=== PATIENT | female | born 1960 | race Caucasian/White ===

== ENCOUNTER → 2020-08-31 13:54 | Outpatient (BNVA) | payer OTHER, SELFPAY | PROVIDERS: Visit Provider Internal Medicine | DX: M75.42 Impingement syndrome of left shoulder (principal) | CPT/HCPCS: 99202 ==

== ENCOUNTER → 2020-09-04 15:15 | Outpatient (BNVA) | payer OTHER, SELFPAY | PROVIDERS: Visit Provider Internal Medicine | DX: M25.512 Pain in left shoulder (principal); R20.0 Anesthesia of skin | CPT/HCPCS: 99213 ==

== ENCOUNTER → 2020-09-07 15:08 | Outpatient (BNVA) | payer OTHER, SELFPAY | PROVIDERS: Visit Provider Internal Medicine | DX: M79.602 Pain in left arm (principal); M50.322 Other cervical disc degeneration at C5-C6 level | CPT/HCPCS: 72050; 99213 ==

== ENCOUNTER → 2020-09-14 15:07 | Outpatient (BNVA) | payer OTHER, SELFPAY | PROVIDERS: Visit Provider Internal Medicine | DX: M79.601 Pain in right arm (principal) | CPT/HCPCS: 99213 ==

== ENCOUNTER → 2020-10-08 13:02 | Outpatient (BNVA) | payer OTHER, SELFPAY | PROVIDERS: Visit Provider Internal Medicine | DX: M79.622 Pain in left upper arm (principal) | CPT/HCPCS: 99213 ==

== ENCOUNTER → 2020-10-22 07:58 | Outpatient (BNVA) | payer OTHER, SELFPAY | PROVIDERS: Visit Provider Internal Medicine | DX: M25.512 Pain in left shoulder (principal) | CPT/HCPCS: 73030; 99214 ==

== ENCOUNTER → 2020-11-07 07:51 | Outpatient (BNVA) | payer OTHER, SELFPAY | PROVIDERS: Visit Provider Physician Assistant | DX: M75.52 Bursitis of left shoulder (principal); M25.612 Stiffness of left shoulder, not elsewhere classified | CPT/HCPCS: 20610; 99202; J1040 ==

== ENCOUNTER 2020-12-25 08:00 | Outpatient (RCR) | payer OTHER, BC, SELFPAY ==
--- NOTE | 2020-10-24 12:02 | MHC.PT.RE ---
[facility] [place] Office [place] Office [place] Office [address] Inés Collins [address] [phone] F: [phone] F: [phone] F: [phone] F: [phone] Physical Therapy Re-evaluation Diagnosis: cervical DDD, DJD, radiculopathy Date of Surgery: n/a Date of Evaluation: 09/19/20 Treatments to Date: 6 Cancellations to Date: 0 No Shows to Date: 0 Subjective: Pt reports feeling better since start of PT. Main complaint now is unable to abduct, reach behind back, and lifting. Neck pain and n/t in L UE has resolved. Pain Score: 0 when sitting, up to 10 c provoking activities Pain Location: L shoulder Objective Measures: Cervical AROM: flexion 45, extension 40, Rotation R 75, L 55. Shoulder ROM: flexion 100 (131), ABD 80 (90), ER 23 (34), IR (35) Resisted tests: R UE 5/5 throughout, L shoulder flexion 3-/5, ABD 2-/5, ER 3-/5, IR 4/5 (in available motion), mid trap 3-/5 SPADI 125/130 NDI 11/50 (20%) Assessment: Pt reports feeling better since start of PT. Main complaint now is unable to abduct R shoulder, reach behind back reaching overhead, and lifting. Her neck pain and n/t have resolved. She demonstrates gains in cervical and shoulder AROM except ER/IR (see objective measures). She is compliant with HEP and has bought a [employer] system for home. She is progressing towards goals and have updated goals at this time. Recommend continued PT 2x/week for and additional 4 weeks to address impairments, implement HEP, and optimize functional mobility. Short Term Goals: -I with HEP - 2 weeks MET -AROM flexion to 120, abd 120 pain free - 2 weeks - PROGRESSING -TP absent in LS/UT - 3 weeks -NEW GOAL: Pt will improve strength by one MMT grade -NEW GOAL: Pt will be able to groom with B UE and pain < 3/10 Hydro Technician Goals: -NPDI 10% or less - 5 weeks -PROGRESSING (20%) -PAin free full AROM c-spine and shoulder - 5 weeks - PROGRESSING -NEW GOAL: Pt will be able to reach into overhead cabinets with pain < 3/10 -NEW GOAL: Pt will demonstrate proper lifting mechanics 10# box from 8 step to waist without cues -NEW GOAL: Improve SPADI to < 105/130 (IR 125/130) Frequency and Duration: The patient will be seen 2x/week for 4 additional weeks Treatment Plan: Therapeutic Exercise Dynamic Therapeutic Activities Neuromuscular Re-ed Manual Therapies Joint Mobilization Home Exercise Program Patient Education Electrical Stimulation Hot or Cold Pack Reviewed/ Agreed with Student Documentation: Therapist: Electronically signed by: Ирина Kate PT Please sign and return to therapist. Thank you for your referral.
--- NOTE | 2021-03-20 13:13 | MHC.PT.DC ---
[facility] [place] Office [place] Office [place] Office [address] Inés Collins [address] [phone] F: [phone] F: [phone] F: [phone] F: [phone] Physical Therapy Discharge Report Diagnosis: cervical DDD, DJD, radiculopathy Date of Surgery: n/a Date of Evaluation: 09/19/20 Date of Discharge: 12/31/20 Treatments to Date: 19 Cancellations to Date: 0 No Shows to Date: 0 Discharge Status: Achieved Goals Independent with HEP Discharge Summary: Pt progressed towards or met all goals. She is I with HEP and appropriate to d/c to HEP at this time. Electronically signed by: Jaxon Puente PT Please sign and return to therapist. Thank you for your referral.
== END 2021-01-02 03:00 | disposition home or self-care (01) ==
LOC: HO.PTCHIC 08:00
PROVIDERS: Visit Provider Internal Medicine
DX: M25.512 Pain in left shoulder (principal)
CPT/HCPCS: 97012; 97014; 97110; 97140; 97162; 97164

== ENCOUNTER → 2020-12-26 09:15 | Outpatient (BNVA) | payer OTHER, SELFPAY | PROVIDERS: Visit Provider Physician Assistant | DX: M75.52 Bursitis of left shoulder (principal); M25.512 Pain in left shoulder | CPT/HCPCS: 99212 ==